=== PATIENT | male | born 1955 | race Caucasian/White ===

== ENCOUNTER 2017-11-29 15:56 | Emergency (ER) | payer MEDICARE ==
[2017-11-29 16:17] VITALS: BP 131/90
--- NOTE | 2017-11-29 16:54 | UC ---
nAdres Dai Julia, scribed for Glory Guevara MD on 11/29/17 at 1639 . Cardiac HPI - HPI Summary HPI Summary: This patient is a 61 year old M poor historian presenting to [facility] with a chief complaint of currently resolved intermittent mid sternal chest pain every fifteen minutes for several months. Pt states has been occurring more frequently Patient reports nausea and SOB with the chest pain. Pt also reports nausea with pain. Pt states had discomfort in WR - no discomfort at time of evaluation. Pt has not taken any medications for discomfort. Pt does not have a PCP and is not on any prescribed medications. PT states came today because discomfort for frequent, not associated with food. Pt denies h/o cardiac evaluation. Reports father with ho CAD. Patient has not seen a doctor for these symptoms and has not been to see a Physician in two years. Patient is not currently taking or prescribed any medications. - History of Current Complaint Chief Complaint: UCChestPain Stated Complaint: EARS CLOGGED, ABDOMINAL PAIN, AND CHEST PAIN Time Seen by Provider: 11/29/17 16:33 Hx Obtained From: Patient Onset/Duration: Resolved, Other - for years Timing: Intermittent Episodes Lasting: - every 15 minutes Initial Severity: Moderate Current Severity: None Pain Intensity: 0 Chest Pain Location: Mid Sternal, Left Anterior Character: Dull/Aching, Heaviness Aggravating Factor(s): Nothing Alleviating Factor(s): Nothing Associated Signs & Symptoms: Positive: Chest Pain, SOB, Nausea/Vomiting. Negative: Back Pain - Allergy/Home Medications Allergies/Adverse Reactions: Allergies Allergy/AdvReac Type Severity Reaction Status Date / Time No Known Allergies Allergy Verified 11/29/17 16:18 PMH/Surg Hx/FS Hx/Imm Hx Previously Healthy: Yes - no PCP 2+ years GI/ History: Other Other GI/ History: hemorrhoids - Surgical History Surgical History: Yes Surgery Procedure, Year, and Place: HEMORRHOIDECTOMY - Family History Known Family History: Positive: Cardiac Disease - [place] - father - Social History Occupation: Unemployed Lives: Alone Alcohol Use: Occasionally Alcohol Amount: Quit 8 months ago was using Chronic ETOH Substance Use Type: Cocaine, Marijuana, Other Substance Use Comment - Amount & Last Used: pt denies Smoking Status (MU): Former Smoker Type: Cigarettes When Did the Patient Quit Smoking/Using Tobacco: Long time ago Review of Systems ENT: Negative - jaw pain Respiratory: Shortness Of Breath Cardiovascular: Chest Pain Gastrointestinal: Nausea Musculoskeletal: Negative - back or shoulder pain Neurological: Other - "buzzing" in ears All Other Systems Reviewed And Are Negative: Yes Physical Exam Triage Information Reviewed: Yes Appearance: Well-Appearing, No Pain Distress, Well-Nourished Vital Signs: Initial Vital Signs Temp 97.3 F 11/29/17 16:06 Pulse 85 11/29/17 16:06 Resp 14 11/29/17 16:06 BP 131/90 11/29/17 16:06 Pulse Ox 96 11/29/17 16:06 Vital Signs Reviewed: Yes Eye Exam: Normal Eyes: Positive: Conjunctiva Clear ENT Exam: Normal ENT: Positive: Hearing grossly normal, Pharynx normal, Other - cerumen b/l obscurring TM Dental Exam: Normal Neck exam: Normal Neck: Positive: Supple, Nontender Respiratory Exam: Normal Respiratory: Positive: Chest non-tender, Lungs clear, Normal breath sounds, No respiratory distress, No accessory muscle use Cardiovascular Exam: Normal Cardiovascular: Positive: RRR, No Murmur, Pulses Normal Abdominal Exam: Normal Abdomen Description: Positive: Nontender, No Organomegaly, Soft, Other: - soft + BS no guarding no rebound. Negative: CVA Tenderness (R), CVA Tenderness (L) Musculoskeletal Exam: Normal Musculoskeletal: Positive: Strength Intact Neurological Exam: Normal Neurological: Positive: Alert Psychological Exam: Normal Psychological: Positive: Normal Response To Family Skin Exam: Normal Skin: Positive: rashes Diagnostics - EKG Cardiac Rate: NL - at 86 BPM Cardiac Rhythm: Sinus: Normal ST Segment: Normal - no acute ST changes - Assessment/Plan Course Of Treatment: PT with intermittent left sided chest pain progressive intensity and frequency cp associated with nausea and SOB. Pt without PCP. Pt 's father with cardiac dx. Pt is not a reliable historian, lives alone and came to by bus. Pt has not been seen at [facility] since 2016. Recommend pt to ED for futher evaluation. recommend EMS. Pt comfortable and in agreement with plan. ASA given. IV placed. [facility] called. Pt comfortable and in agreement with plan - Clinical Impression Provider Diagnoses: chest pain Discharge - Discharge Plan Condition: Stable Disposition: TRANS HIGHER LVL OF CARE FAC Referrals: No Primary Care Phys,NOPCP [Primary Care Provider] - The documentation as recorded by the Andres moore Julia accurately reflects the service I personally performed and the decisions made by me, Glory Guevara MD.
[2017-11-29] MEDS ORDERED: Aspirin Low Dose CHEW TAB* 81 MG PO ONE (17:07)
[2017-11-30] MEDS ORDERED: Aspirin Low Dose CHEW TAB* 81 MG PO ONE (16:52)
== END 2017-11-29 17:13 | disposition short-term general hospital (02) ==
LOC: UCEAST 15:56
DX: R07.89 Other chest pain (principal); R06.02 Shortness of breath; R11.0 Nausea; Z87.891 Personal history of nicotine dependence
CPT/HCPCS: 93005; 99213; A9270-GY; G0463

== ENCOUNTER 2017-11-29 17:39 | Emergency (ER) | payer MEDICARE ==
[2017-11-29 20:18] LABS: ABS Basophils 0 10^3/ul (0-0.2); ABS Eosinophils 0.1 10^3/ul (0-0.6); ABS Lymphocytes 1.7 10^3/ul (1.0-4.8); ABS Monocytes 0.9 10^3/ul (0-0.8); ABS Neutrophils 4.6 10^3/ul (1.5-7.7); ABS Nucleated RBC 0 10^3/ul; Eosinophil % 1.4 % (0-6); Hematocrit 44 % (42-52); Lymphocyte % 23.5 % (25-47); Mean Corpuscular HGB Conc 34 g/dl (31-36); Mean Corpuscular Hemoglobin 31 pg (27-31); Mean Corpuscular Volume 91 fL (80-94); Mean Platelet Volume 7 um3 (7.4-10.4); Nucleated Red Blood Cells % 0.1; Platelet Count 231 10^3/ul (150-450); Red Blood Count 4.84 10^6/ul (4.0-5.4); Red Cell Distribution Width 14 % (10.5-15); White Blood Count 7.4 10^3/ul (3.5-10.8)
[2017-11-29 20:24] LABS: INR 0.91 (0.77-1.02)
[2017-11-29 20:32] LABS: EGFR Non-African American 63.4 (>60)
--- NOTE | 2017-11-29 21:18 | RAD ---
Indication: Intermittent chest pain. Asthma. Comparison: May 03, 2013 Technique: Upright AP 2009 hours Report: Clear lungs and pleural spaces. Negative for pneumothorax. Negative for cardiomegaly. Unremarkable central pulmonary vasculature. Small chronic retrocardiac hiatal hernia. IMPRESSION: No evidence for pneumonia. No evidence for acute intrathoracic disease.
--- NOTE | 2017-11-29 22:03 | ED ---
Troy Dai Gabriel, scribed for Pino Ca MD on 11/29/17 at 1816 . HPI Chest Pain - HPI Summary HPI Summary: This patient is a 61 year old M BIBA to [facility] with a chief complaint of intermittent CP that began months ago. He came in today because he is irritated of having the pain not because it has gotten worse. He has the episodes every day about one time every 30 minutes and they last for about a minute. The patient rates the pain 4/10 in severity and radiating into his ABD. Patient reports hissing in ears, trouble sleeping, and a sharp pain in his esophagus when he eats or drinks. Patient denies SOB, nausea, diaphoresis, and vomiting. Pt was seen for his ears previously and they cleaned them and told him he is slowly going deaf. - History of Current Complaint Chief Complaint: EDChestPainROMI Time Seen by Provider: 11/29/17 18:12 Hx Obtained From: Patient Onset/Duration: Still Present Timing: Constant Initial Severity: Moderate Current Severity: Moderate Pain Intensity: 4 Pain Scale Used: 0-10 Numeric Chest Pain Location: Diffuse Chest Pain Radiates: Yes Chest Pain Radiates To:: Epigastric Associated Signs and Symptoms: Positive: Negative - nausea, SOB, diaphoresis,, Chest Pain, Other: - hissing in ears, trouble sleeping, and a sharp pain in his esophagus when he eats or drinks - Allergy/Home Medications Allergies/Adverse Reactions: Allergies Allergy/AdvReac Type Severity Reaction Status Date / Time No Known Allergies Allergy Verified 11/29/17 16:18 Home Medications: Home Medications NK [No Home Medications Reported] 11/29/17 [History Confirmed 11/29/17] PMH/Surg Hx/FS Hx/Imm Hx Endocrine/Hematology History: Denies: Hx Diabetes, Hx Thyroid Disease Cardiovascular History: Denies: Hx Hypertension Respiratory History: Reports: Hx Asthma Denies: Hx Chronic Obstructive Pulmonary Disease (COPD) GI History: Denies: Hx Ulcer Psychiatric History: Reports: Hx of Violent Episodes Against Others Denies: Hx Eating Disorder - Surgical History Surgery Procedure, Year, and Place: HEMORRHOIDECTOMY - Immunization History Date of Tetanus Vaccine: Unknown Infectious Disease History: No Infectious Disease History: Denies: Hx Clostridium Difficile, Hx Hepatitis, Hx Human Immunodeficiency Virus (HIV), Hx of Known/Suspected MRSA, Hx Shingles, Hx Tuberculosis, Hx Known/ Suspected VRE, Hx Known/Suspected VRSA, History Other Infectious Disease, Traveled Outside the [place] in Last 30 Days - Family History Known Family History: Positive: Cardiac Disease - [place] - father, Other - CVA - Social History Alcohol Use: Occasionally Alcohol Amount: Quit 8 months ago was using Chronic ETOH Substance Use Type: Reports: Cocaine, Marijuana, Other Substance Use Comment - Amount & Last Used: pt denies Smoking Status (MU): Former Smoker Type: Cigarettes Review of Systems Positive: Other - trouble sleeping . Negative: Fever, Chills Positive: Other - hissing in his ears Positive: Chest Pain Negative: Shortness Of Breath Positive: Other - pain in his esophagus when he eats or drinks. Negative: Vomiting, Nausea All Other Systems Reviewed And Are Negative: Yes Physical Exam - Summary Physical Exam Summary: Appearance: The patient is well-nourished in no acute distress and in no acute pain. Skin: The skin is warm and dry and skin color reflects adequate perfusion. HEENT: The head is normocephalic and atraumatic. The pupils are equal and reactive. The conjunctivae are clear and without drainage. Nares are patent and without drainage. Mouth reveals moist mucous membranes and the throat is without erythema and exudate. The external ears are intact. The ear canals are patent and without drainage. The tympanic membranes are intact. Neck: the neck is supple with full range of motion and non-tender. There are no carotid bruits. There is no neck vein distension. Respiratory: Chest is non-tender. Lungs are clear to auscultation and breath sounds are symmetrical and equal. Cardiovascular: Heart is regular rate and rhythm. There is no murmur or rub auscultated. There is no peripheral edema and pulses are symmetrical and equal. Abdomen: The abdomen is soft and non-tender. There are normal bowel sounds heard in all four quadrants and there is no organomegaly palpated. Musculoskeletal: There is no back tenderness noted. Extremities are non-tender with full range of motion. There is good capillary refill. There is no peripheral edema or calf tenderness elicited. Neurological: Patient is alert and oriented to person, place and time. The patient has symmetrical motor strength in all four extremities. Cranial nerves are grossly intact. Deep tendon reflexes are symmetrical and equal in all four extremities. Psychiatric: The patient has an appropriate affect and does not exhibit any anxiety or depression. Triage Information Reviewed: Yes Vital Signs On Initial Exam: Initial Vitals Temp Pulse Resp BP Pulse Ox 98.1 F 72 16 144/94 96 11/29/17 17:46 11/29/17 17:46 11/29/17 17:46 11/29/17 17:46 11/29/17 17:46 Vital Signs Reviewed: Yes Diagnostics - Vital Signs Vital Signs Temp Pulse Resp BP Pulse Ox 11/29/17 17:46 98.1 F 72 16 144/94 96 - Laboratory Lab Results: Lab Results 11/29/17 11/29/17 11/29/17 Range/Units 20:05 20:05 20:05 WBC 7.4 (3.5-10.8) 10^3/ul RBC 4.84 (4.0-5.4) 10^6/ul Hgb 15.0 (14.0-18.0) g/dl Hct 44 (42-52) % MCV 91 (80-94) fL MCH 31 (27-31) pg MCHC 34 (31-36) g/dl RDW 14 (10.5-15) % Plt Count 231 (150-450) 10^3/ul MPV 7 L (7.4-10.4) um3 Neut % (Auto) 62.1 (38-83) % Lymph % (Auto) 23.5 L (25-47) % Rosebud % (Auto) 12.5 H (0-7) % Eos % (Auto) 1.4 (0-6) % Baso % (Auto) 0.5 (0-2) % Absolute Neuts (auto) 4.6 (1.5-7.7) 10^3/ul Absolute Lymphs (auto) 1.7 (1.0-4.8) 10^3/ul Absolute Monos (auto) 0.9 H (0-0.8) 10^3/ul Absolute Eos (auto) 0.1 (0-0.6) 10^3/ul Absolute Basos (auto) 0 (0-0.2) 10^3/ul Absolute Nucleated RBC 0 10^3/ul Nucleated RBC % 0.1 INR (Anticoag Therapy) (0.77-1.02) Sodium 138 (133-145) mmol/L Potassium 3.8 (3.5-5.0) mmol/L Chloride 105 (101-111) mmol/L Carbon Dioxide 27 (22-32) mmol/L Anion Gap 6 (2-11) mmol/L BUN 13 (6-24) mg/dL Creatinine 1.17 (0.67-1.17) mg/dL Est GFR ( Amer) 81.5 (>60) Est GFR (Non-Af Amer) 63.4 (>60) BUN/Creatinine Ratio 11.1 (8-20) Glucose 80 (70-100) mg/dL Lactic Acid (0.5-2.0) mmol/L Calcium 9.0 (8.6-10.3) mg/dL Total Bilirubin 0.40 (0.2-1.0) mg/dL AST 30 (13-39) U/L ALT 37 (7-52) U/L Alkaline Phosphatase 61 (34-104) U/L Troponin I 0.00 (<0.04) ng/mL B-Natriuretic Peptide 77 ( - 100) pg/mL Total Protein 7.0 (6.4-8.9) g/dL Albumin 4.1 (3.2-5.2) g/dL Globulin 2.9 (2-4) g/dL Albumin/Globulin Ratio 1.4 (1-3) 11/29/17 11/29/17 Range/Units 20:05 20:05 WBC (3.5-10.8) 10^3/ul RBC (4.0-5.4) 10^6/ul Hgb (14.0-18.0) g/dl Hct (42-52) % MCV (80-94) fL MCH (27-31) pg MCHC (31-36) g/dl RDW (10.5-15) % Plt Count (150-450) 10^3/ul MPV (7.4-10.4) um3 Neut % (Auto) (38-83) % Lymph % (Auto) (25-47) % Rosebud % (Auto) (0-7) % Eos % (Auto) (0-6) % Baso % (Auto) (0-2) % Absolute Neuts (auto) (1.5-7.7) 10^3/ul Absolute Lymphs (auto) (1.0-4.8) 10^3/ul Absolute Monos (auto) (0-0.8) 10^3/ul Absolute Eos (auto) (0-0.6) 10^3/ul Absolute Basos (auto) (0-0.2) 10^3/ul Absolute Nucleated RBC 10^3/ul Nucleated RBC % INR (Anticoag Therapy) 0.91 (0.77-1.02) Sodium (133-145) mmol/L Potassium (3.5-5.0) mmol/L Chloride (101-111) mmol/L Carbon Dioxide (22-32) mmol/L Anion Gap (2-11) mmol/L BUN (6-24) mg/dL Creatinine (0.67-1.17) mg/dL Est GFR ( Amer) (>60) Est GFR (Non-Af Amer) (>60) BUN/Creatinine Ratio (8-20) Glucose (70-100) mg/dL Lactic Acid 1.5 (0.5-2.0) mmol/L Calcium (8.6-10.3) mg/dL Total Bilirubin (0.2-1.0) mg/dL AST (13-39) U/L ALT (7-52) U/L Alkaline Phosphatase (34-104) U/L Troponin I (<0.04) ng/mL B-Natriuretic Peptide ( - 100) pg/mL Total Protein (6.4-8.9) g/dL Albumin (3.2-5.2) g/dL Globulin (2-4) g/dL Albumin/Globulin Ratio (1-3) Result Diagrams: 11/29/17 20:05 11/29/17 20:05 Lab Statement: Any lab studies that have been ordered have been reviewed, and results considered in the medical decision making process. - Radiology CXR Radiology Interpretation Completed By: Radiologist - No evidence for pneumonia. No evidence for acute intrathoracic disease. ED physician has reviewed this radiology report. - EKG 17:45 Cardiac Rate: NL EKG Rhythm: Sinus Rhythm - at 72 BPM EKG Interpretation: No STEMI Chest Pain Course/Dx - Course Course Of Treatment: Mr. Nuno presented with a concern for atypical chest pains that have been going on for a long time and are frustrating him. I'm not sure what the etilogy of them is and his initial labs, ecg and CXR are WNL. He is getting a repeat trop and will be D/C'd if it is negative.. - Diagnoses Provider Diagnoses: Chest pain Discharge - Discharge Plan Condition: Stable Disposition: HOME Patient Education Materials: Chest Pain (ED) Referrals: [facility] PHYSICIAN REFERRAL [Outside] - 3 Days Additional Instructions: RETURN TO EMERGENCY DEPARTMENT FOR ANY NEW OR WORSENING SYMPTOMS The documentation as recorded by the Troy moore Gabriel accurately reflects the service I personally performed and the decisions made by me, Pino Ca MD.
[2017-11-29 23:50] VITALS: BP 139/94
== END 2017-11-29 23:52 | disposition home or self-care (01) ==
LOC: ED 17:39
DX: R07.89 Other chest pain (principal); Z87.891 Personal history of nicotine dependence
CPT/HCPCS: 36415; 71045; 80053; 83605; 83880; 84484; 85025; 85610; 93005; 99284